=== PATIENT | male | born 1965 | race Caucasian/White ===

== ENCOUNTER 2017-10-02 07:06 | Day surgery (SDC) | payer OTHER ==
[2017-10-02] MEDS ORDERED: PROPOFOL 500 MG/50 ML EMU IV ONE (07:35)
[2017-10-02] MEDS ORDERED: LIDOCAINE HCL 1% MPF SOL ONE (07:35)
[2017-10-02 08:45] VITALS: TEMP 97.9
[2017-10-02 09:06] VITALS: RESP 20
[2017-10-02 09:17] VITALS: BP 118/72; PULSE 53; O2SAT 100
== END 2017-10-02 09:40 | disposition home or self-care (01) | DRG 951 ==
LOC: SURG 07:06
PROVIDERS: ATTEND Internal Medicine Gastroenterology
DX: Z12.11 Encounter for screening for malignant neoplasm of colon (principal); D12.3 Benign neoplasm of transverse colon; E11.9 Type 2 diabetes mellitus without complications; K57.30 Diverticulosis of large intestine without perforation or abscess without bleeding; K64.8 Other hemorrhoids; K63.5 Polyp of colon
CPT/HCPCS: 82962; J2001; J2704

== ENCOUNTER 2018-05-12 18:13 | Emergency (ER) | payer OTHER ==
[2018-05-12 18:35] VITALS: TEMP 96.7
[2018-05-12 19:31] VITALS: PULSE 70; RESP 18; O2SAT 97
[2018-05-12 20:04] VITALS: BP 130/73
== END 2018-05-12 20:03 | disposition home or self-care (01) | DRG 90 ==
LOC: ED 18:13
DX: S06.0X0A Concussion without loss of consciousness, initial encounter (principal); R58 Hemorrhage, not elsewhere classified; W00.0XXA Fall on same level due to ice and snow, initial encounter; R40.2362 Coma scale, best motor response, obeys commands, at arrival to emergency department; R40.2142 Coma scale, eyes open, spontaneous, at arrival to emergency department; R40.2252 Coma scale, best verbal response, oriented, at arrival to emergency department; E11.9 Type 2 diabetes mellitus without complications
CPT/HCPCS: 70450; 99283; 99284; G0390